=== PATIENT | male | born 1935 | race Caucasian/White ===

== ENCOUNTER 2024-08-02 21:30 | Inpatient (IN) | payer MEDICARE, OTHER ==
[~2024-08-02] VITALS: Ht 165.1 cm; Wt 59.0 kg
[2024-08-02 23:10] VITALS: BP 111/61; TEMP 97.7; O2SAT 97
[2024-08-03] MEDS ORDERED: CEFTRIAXONE 1 G VIAL ONE (00:27)
[2024-08-03] MEDS: TEMAZEPAM 15 MG CAPSULE PO PRN (01:05)
[2024-08-03] MEDS: ENOXAPARIN SODIUM 30 MG/0.3 ML DISP.SYRIN SUBCUT SCH (01:07)
[2024-08-03] MEDS: CEFTRIAXONE 1 G VIAL IM SCH (01:09)
[2024-08-03 07:17] VITALS: BP 132/67; TEMP 97.7; O2SAT 94
[2024-08-03] MEDS ORDERED: AMLODIPINE 10 MG TABLET PO SCH ×2 (09:00)
[2024-08-03] MEDS ORDERED: AMLODIPINE 10 MG TABLET PO PRN (09:00)
[2024-08-03] MEDS: ASPIRIN 81 MG TAB.CHEW GT SCH (10:54)
[2024-08-03] MEDS: ESCITALOPRAM OXALATE 10 MG TABLET PO SCH (10:54)
[2024-08-03] MEDS: CLONIDINE HCL 0.1 MG TABLET PO SCH (10:56)
[2024-08-03] MEDS ORDERED: ENOX30DI5 SQ (11:00)
[2024-08-03] MEDS ORDERED: ESCI5TAB PO (11:00)
[2024-08-03] MEDS ORDERED: CLON0.1T PO (11:00)
[2024-08-03] MEDS ORDERED: AMLO-212 PO (11:00)
[2024-08-03] MEDS ORDERED: ATOR20TA PO (11:00)
[2024-08-03] MEDS ORDERED: ASPI81TA31 PO (11:00)
[2024-08-03 14:52] LABS: *BILIRUBIN,URIN NEGATIVE (NEGATIVE); *BLOOD, URINE NEGATIVE (NEGATIVE); *CLARITY,URINE CLEAR (CLEAR); *COLOR,URINE YELLOW (YELLOW); *KETONES,URINE NEGATIVE (NEGATIVE); *PROTEIN,URINE NEGATIVE (NEGATIVE); *UROBILINOGEN,URINE 0.2 E.U./dl (NORMAL); LEUKOCYTE ESTERASE ,URINE NEGATIVE (NEGATIVE); NITRITE, URINE NEGATIVE (NEGATIVE); UGLUCOSE NEGATIVE (NEGATIVE)
[2024-08-03 16:04] VITALS: BP 111/52; TEMP 98.3; O2SAT 97
[2024-08-03 19:59] VITALS: BP 110/58; TEMP 96.8; O2SAT 95
[2024-08-03] MEDS: ATORVASTATIN 20 MG TABLET PO SCH (20:40)
[2024-08-03] MEDS: CEphaleXIN 500 MG CAPSULE PO SCH (20:40)
[2024-08-03] MEDS ORDERED: CEFTRIAXONE 1 G VIAL IM SCH (21:00)
[2024-08-04 05:17] VITALS: BP 141/64; TEMP 97.8; O2SAT 97
[2024-08-04 07:27] LABS: BASOPHILS % (AUTO) 0.6 % (0.0-2.0); EOSINOPHILS # (AUTO) 0.3 K/uL (0.0-0.7); EOSINOPHILS % (AUTO) 4.1 % (0.0-7.0); HEMATOCRIT 35.8 % (36.7-47.1); HEMOGLOBIN 12.4 g/dL (12.5-16.3); LYMPHOCYTES # (AUTO) 1.7 K/uL (0.8-4.8); LYMPHOCYTES % (AUTO) 24.9 % (20.5-51.5); MEAN CORPUSCULAR HEMOGLOBIN 31.3 uug (23.8-33.4); MEAN CORPUSCULAR HGB CONC 35 g/dL (32.5-36.3); MONOCYTES # (AUTO) 0.6 K/uL (0.1-1.30); MONOCYTES % (AUTO) 8.3 % (0.0-11.0); NEUTROPHILS # (AUTO) 4.3 K/uL (1.8-8.9); NEUTROPHILS % (AUTO) 62.1 % (38.5-71.5); PLATELET COUNT (AUTO) 241 K/uL (152-348); RED BLOOD CELL COUNT(AUTO) 3.97 MIL/uL (4.06-5.63); RED CELL DISTRIBUTION WIDTH 13.5 % (12.1-16.2); WHITE BLOOD COUNT (AUTO) 6.9 K/uL (3.6-10.2)
[2024-08-04 07:28] LABS: DIFFERENTIAL COMMENT 1
[2024-08-04 07:40] LABS: CALCIUM 8.4 mg/dL (8.5-10.1); CARBON DIOXIDE 31 mmol/L (21-32); CHLORIDE 105 mmol/L (98-107); CREATININE 1.1 mg/dL (0.6-1.3); GLUCOSE 92 mg/dL (74-106); POTASSIUM 3.6 mmol/L (3.5-5.1); SODIUM SERUM 144 mmol/L (136-145); UREA NITROGEN, BLOOD 20 mg/dL (7-18)
[2024-08-04 08:00] VITALS: BP 154/69; O2SAT 98
[2024-08-04] MEDS: AMLODIPINE 5 MG TABLET PO SCH (09:12)
[2024-08-04] MEDS ORDERED: MIRALAX 17 GM POWD.PACK PO PRN (11:30)
[2024-08-04 16:00] VITALS: BP 119/71; TEMP 98.5; O2SAT 97
[2024-08-04] MEDS ORDERED: ENOXAPARIN SODIUM 30 MG/0.3 ML DISP.SYRIN ONE (21:08)
[2024-08-04 21:17] VITALS: BP 113/56; TEMP 98.6; O2SAT 96
[2024-08-05] MEDS: ACETAMINOPHEN 325 MG TABLET PO PRN (05:55)
[2024-08-05 06:42] VITALS: BP 158/76; TEMP 98.2; O2SAT 98
[2024-08-05 19:59] VITALS: BP 154/70; TEMP 98.3; O2SAT 94
[2024-08-06 06:20] VITALS: BP 151/73; TEMP 98.2; O2SAT 95
[2024-08-06 15:54] VITALS: BP 153/60; TEMP 98.8; O2SAT 94
[2024-08-06 19:54] VITALS: BP 135/70; TEMP 98.4; O2SAT 96
[2024-08-07 06:41] VITALS: BP 152/65; TEMP 98.4; O2SAT 95
[2024-08-07 07:52] VITALS: BP 141/66; TEMP 98.2; O2SAT 96
[2024-08-07 15:21] VITALS: BP 111/54; TEMP 98.2; O2SAT 96
[2024-08-07] MEDS: REMEDY ESSENTIAL ZINC PASTE 113 GM TOP PRN (16:38)
[2024-08-07 20:00] VITALS: BP 122/56; TEMP 98.1; O2SAT 94
[2024-08-08 06:00] VITALS: BP 151/64; TEMP 97.5; O2SAT 95
[2024-08-08 07:52] VITALS: BP 163/67; TEMP 97.4; O2SAT 98
[2024-08-08 15:27] VITALS: BP 137/67; TEMP 97.6; O2SAT 98
[2024-08-08] MEDS: ENSURE ENLIVE (VAN) 240 ML LIQUID PO SCH (16:27)
[2024-08-08 20:00] VITALS: BP 118/48; TEMP 97.9; O2SAT 98
[2024-08-09 06:00] VITALS: BP 138/59; TEMP 98; O2SAT 98
[2024-08-09 08:00] VITALS: BP 108/67; TEMP 97.7; O2SAT 96
[2024-08-09 19:26] VITALS: BP 133/63; TEMP 97.7; O2SAT 95
[2024-08-10 06:25] VITALS: BP 126/68; TEMP 97.8; O2SAT 95
[2024-08-10 08:00] VITALS: BP 146/69; TEMP 97.4; O2SAT 96
[2024-08-10] MEDS: MEDIHONEY= THERAHONEY 1.5 OZ TUBE TOP SCH (13:58)
[2024-08-10 16:14] VITALS: BP 117/47; TEMP 98.2; O2SAT 97
[2024-08-10 19:33] VITALS: BP 136/62; TEMP 97.7; O2SAT 95
[2024-08-11 06:20] VITALS: BP 150/69; TEMP 97.8; O2SAT 97
[2024-08-11 09:08] VITALS: BP 143/60; TEMP 97.6; O2SAT 96
[2024-08-11 15:15] VITALS: BP 133/56; TEMP 98.8; O2SAT 98
[2024-08-11] MEDS: ARGININE/GLUTAMINE/CALCIUM BMB 1 EACH POWD.PACK PO SCH (17:55)
[2024-08-11 21:27] VITALS: BP 130/56; TEMP 97.7; O2SAT 98
[2024-08-12 06:00] VITALS: BP 122/67; TEMP 97.5; O2SAT 96
[2024-08-12 07:52] VITALS: BP 158/71; TEMP 97.4; O2SAT 97
[2024-08-12 08:38] LABS: BASOPHILS % (AUTO) 0.4 % (0.0-2.0); EOSINOPHILS # (AUTO) 0.2 K/uL (0.0-0.7); EOSINOPHILS % (AUTO) 2.7 % (0.0-7.0); HEMATOCRIT 36.4 % (36.7-47.1); HEMOGLOBIN 12.5 g/dL (12.5-16.3); LYMPHOCYTES # (AUTO) 1.9 K/uL (0.8-4.8); LYMPHOCYTES % (AUTO) 25.7 % (20.5-51.5); MEAN CORPUSCULAR HEMOGLOBIN 31.1 uug (23.8-33.4); MEAN CORPUSCULAR HGB CONC 34 g/dL (32.5-36.3); MEAN CORPUSCULAR VOLUME 90.8 fL (73.0-96.2); MONOCYTES # (AUTO) 0.5 K/uL (0.1-1.30); MONOCYTES % (AUTO) 6.5 % (0.0-11.0); NEUTROPHILS # (AUTO) 4.7 K/uL (1.8-8.9); NEUTROPHILS % (AUTO) 64.7 % (38.5-71.5); PLATELET COUNT (AUTO) 397 K/uL (152-348); RED BLOOD CELL COUNT(AUTO) 4.01 MIL/uL (4.06-5.63); RED CELL DISTRIBUTION WIDTH 13.9 % (12.1-16.2); WHITE BLOOD COUNT (AUTO) 7.3 K/uL (3.6-10.2)
[2024-08-12 08:55] LABS: DIFFERENTIAL COMMENT 1
[2024-08-12 09:34] LABS: ALANINE AMINOTRANSFERASE 20 U/L (16-63); ALBUMIN 2.5 g/dL (3.4-5.0); ALKALINE PHOSPHATASE 62 U/L (50-136); ASPARTATE AMINOTRANSFERASE 25 U/L (15-37); BILIRUBIN,TOTAL 0.4 mg/dL (0.2-1.0); CALCIUM 8.4 mg/dL (8.5-10.1); CARBON DIOXIDE 31 mmol/L (21-32); CHLORIDE 102 mmol/L (98-107); CREATININE 1.1 mg/dL (0.6-1.3); GLUCOSE 93 mg/dL (74-106); MAGNESIUM 2.3 mg/dL (1.8-2.4); PHOSPHOROUS 2.9 mg/dL (2.5-4.9); POTASSIUM 4.1 mmol/L (3.5-5.1); SODIUM SERUM 136 mmol/L (136-145); UREA NITROGEN, BLOOD 23 mg/dL (7-18)
[2024-08-12 09:38] LABS: THYROID STIMULATING HORMONE 1.713 mIU/mL (0.358-3.740)
[2024-08-12 13:57] VITALS: BP 103/41; TEMP 97.9; O2SAT 94
[2024-08-12 15:31] LABS: CHOLESTEROL 120 mg/dL (<200); HDL CHOLESTEROL 43 mg/dL (40-60); TRIGLYCERIDES 116 MG/DL (30-150)
[2024-08-12 21:19] VITALS: BP 118/55; TEMP 97.8; O2SAT 97
[2024-08-13 08:30] VITALS: BP 154/68; TEMP 97.5; O2SAT 94
[2024-08-13 16:06] VITALS: BP 131/62; TEMP 98.2; O2SAT 97
[2024-08-13 21:43] VITALS: BP 137/58; TEMP 97.7; O2SAT 95
[2024-08-14 06:31] VITALS: BP 157/72; TEMP 97.5; O2SAT 95
[2024-08-14 20:47] VITALS: BP 133/63; TEMP 97.8; O2SAT 96
[2024-08-15 05:23] VITALS: BP 148/69; TEMP 97.9; O2SAT 96
[2024-08-15 08:00] VITALS: BP 147/64; TEMP 97.6; O2SAT 95
[2024-08-15 16:20] VITALS: BP 145/71; TEMP 97.8; O2SAT 98
== END 2024-08-15 16:30 | DRG 70 ==
PROVIDERS: ADMIT Physical Medicine & Rehabilitation Pain Medicine; ATTEND Physical Medicine & Rehabilitation Pain Medicine
DX: G93.41 Metabolic encephalopathy (principal); N17.0 Acute kidney failure with tubular necrosis; M62.82 Rhabdomyolysis; R53.1 Weakness; R62.7 Adult failure to thrive; Z68.23 Body mass index [BMI] 23.0-23.9, adult; I10 Essential (primary) hypertension; E78.5 Hyperlipidemia, unspecified; Z85.46 Personal history of malignant neoplasm of prostate; D09.0 Carcinoma in situ of bladder; Z87.440 Personal history of urinary (tract) infections; Z91.81 History of falling; D64.9 Anemia, unspecified; F32.A Depression, unspecified; L89.92 Pressure ulcer of unspecified site, stage 2; Z63.79 Other stressful life events affecting family and household
CPT/HCPCS: 36415; 83735; 84100; 84443; 85025; 97535-GO-CO; A4663; J0696; J1650